=== PATIENT | male | born 1975 | race Caucasian/White ===

== ENCOUNTER 2017-05-01 09:59 | Emergency (ER) | payer OTHER ==
[~2017-05-01] VITALS: Ht 175.3 cm; Wt 73.0 kg
[~2017-05-01 09:59] MED LIST: AMOX500T PO; CIPR0.3S EACH EAR; CORTI10A AU; IBUP-238 PO; LORTA5 PO; Z.0.NO CURRENT MEDS
[2017-05-01 10:02] VITALS: BP 190/96; PULSE 84; RESP 16; TEMP 98.9; O2SAT 98
[2017-05-01] MEDS ORDERED: NORC5TAB PO (10:23)
[2017-05-01] MEDS ORDERED: BACT800T5 PO (10:23)
[2017-05-01] MEDS ORDERED: CORTISPORIN OTIC SUS EACH EAR (10:23)
[2017-05-01] MEDS ORDERED: CIPR-9 PO (10:23)
--- NOTE | 2017-05-01 10:23 | PD ---
HPI Chief Complaint: ENT Complaint Time Seen by Provider: 10:12 Travel History International Travel<30 days: No Contact w/Intl Traveler<30days: No Traveled to known affect area: No History of Present Illness HPI 42-year-old male complains of ear pain. Patient states that the pain started yesterday. Patient states the pain is severe pain sharp pain localized to the left ear. Patient denies any pain radiation. Patient feeling feverish this today. Patient denies any sore throat coughing congestion. Patient denies any nausea vomiting diarrhea. PFSH Past Medical History Diminished Hearing: No Immunizations Current: No Influenza Vaccination: No ?: Not Past Surgical History Appendectomy: Yes Social History Alcohol Use: Yes (2 x wk) Tobacco Use: No Substance Use: No Allergies-Medications (Allergen,Severity, Reaction): Coded Allergies: No Known Allergies (Verified , 05/01/17) Reported Meds & Prescriptions Reported Meds & Active Scripts Active No Active Prescriptions or Reported Medications Review of Systems General / Constitutional: No: Fever Eyes: No: Visual changes HENT: Positive: Earache, No: Headaches Cardiovascular: No: Chest Pain or Discomfort Respiratory: No: Shortness of Breath Gastrointestinal: No: Abdominal Pain Genitourinary: No: Dysuria Musculoskeletal: No: Pain Skin: No Rash Neurologic: No: Weakness Psychiatric: No: Depression Endocrine: No: Polydipsia Hematologic/Lymphatic: No: Easy Bruising Physical Exam Narrative GENERAL: Well-nourished, well-developed patient. SKIN: Focused skin assessment warm/dry. HEAD: Normocephalic. EYES: No scleral icterus. No injection or drainage. Soft tissue swelling tenderness left ear canal and left earlobe. Mild diffuse tenderness over the soft tissue surrounding left ear. Throat: Nonerythematous. NECK: Supple, trachea midline. No JVD or lymphadenopathy. CARDIOVASCULAR: Regular rate and rhythm without murmurs, gallops, or rubs. RESPIRATORY: Breath sounds equal bilaterally. No accessory muscle use. GASTROINTESTINAL: Abdomen soft, non-tender, nondistended. MUSCULOSKELETAL: No cyanosis, or edema. BACK: Nontender without obvious deformity. No CVA tenderness. Data Data Last Documented VS Vital Signs Date Time Temp Pulse Resp B/P Pulse Ox O2 Delivery O2 Flow Rate FiO2 05/01/17 10:02 98.9 84 16 190/96 98 MDM Medical Decision Making Medical Screen Exam Complete: Yes Emergency Medical Condition: Yes Differential Diagnosis Differential diagnosis including otitis externa, otitis media, cellulitis, abscess. Narrative Course 42-year-old male with left hip pain. Diagnosis Primary Impression: Left otitis externa Qualified Code: H60.312 - Acute diffuse otitis externa of left ear Patient Instructions: General Instructions Additional Instructions: Take medications as directed. Follow-up with ENT. Return if worse. Med/Other Pt SpecificInfo: Prescription(s) given Scripts Hydrocodone-Acetaminophen ([place])5-325 mg Tab1 Tab PO Q6H PRN (PAIN) #20 TAB Ref 0 Prov:Salinas Gray MD 05/01/17 [Cortisporin Otic Umm] No Conflict Check4 Drop EACH EAR TID #1 Prov:Salinas Gray MD 05/01/17 Sulfamethoxazole-Trimethoprim (Bactrim DS)800-160 Mg Tab1 Tab PO BID #20 TAB Prov:Salinas Gray MD 05/01/17 Ciprofloxacin (Cipro)500 Mg Dli024 Mg PO BID #20 TAB Prov:Salinas Gray MD 05/01/17 Disposition: 01 DISCHARGE HOME Condition: Stable Salinas Gray MD May 01, 2017 10:23
== END 2017-05-01 10:40 | disposition home or self-care (01) ==
LOC: PHEFT 09:59
DX: H60.312 Diffuse otitis externa, left ear (principal)
CPT/HCPCS: 99284

== ENCOUNTER 2017-12-04 16:58 | Emergency (ER) | payer OTHER ==
[~2017-12-04] VITALS: Ht 172.7 cm; Wt 72.0 kg
[~2017-12-04 16:58] MED LIST changes: -AMOX500T PO; +BACT800T5 PO; +CIPR-9 PO; -CIPR0.3S EACH EAR; -CORTI10A AU; +CORTISPORIN OTIC SUS EACH EAR; -IBUP-238 PO; -LORTA5 PO; +NORC5TAB PO; -Z.0.NO CURRENT MEDS
[2017-12-04 17:58] VITALS: BP 143/71; PULSE 108; RESP 16; TEMP 100.1; O2SAT 97
[2017-12-04] MEDS ORDERED: OSEL75 PO (19:53)
[2017-12-04] MEDS ORDERED: PROMSYP3 PO (19:53)
--- NOTE | 2017-12-04 19:54 | PD ---
HPI Chief Complaint: Cold / Flu Symptoms Time Seen by Provider: 19:34 Travel History International Travel<30 days: No Contact w/Intl Traveler<30days: No Traveled to known affect area: No History of Present Illness HPI His is a 42-year-old male here with body aches, fever, nasal congestion, cough 2 days. Severity is moderate. No aggravating or alleviating factors. No sick contacts or foreign travel. PFSH Past Medical History Medical History: Denies Significant Hx Diminished Hearing: No Immunizations Current: No Tetanus Vaccination: Unknown Influenza Vaccination: No Past Surgical History Appendectomy: Yes Social History Alcohol Use: Yes (2 x wk) Tobacco Use: No Substance Use: No Allergies-Medications (Allergen,Severity, Reaction): Coded Allergies: No Known Allergies (Verified Adverse Reaction, Unknown, 12/04/17) Reported Meds & Prescriptions Reported Meds & Active Scripts Active Promethazine-Dextromethorphan Liq (Dextromethorphan-Promethazine Liq) 6.25-15 Mg /5 Ml Syrp 10 Ml PO Q6HR PRN Tamiflu (Oseltamivir Phosphate) 75 Mg Cap 75 Mg PO BID 5 Days Review of Systems Except as stated in HPI: all other systems reviewed are Neg General / Constitutional: Positive: Fever Eyes: No: Visual changes HENT: Positive: Sore Throat, Congestion Cardiovascular: No: Chest Pain or Discomfort Respiratory: Positive: Cough Gastrointestinal: No: Abdominal Pain Genitourinary: No: Dysuria Physical Exam Narrative GENERAL: Alert well-appearing 42-year-old male SKIN: Warm and dry. No rash HEAD: Normocephalic. EYES: . No injection or drainage. Ear/nose/throat; the TM erythema. Clear nasal discharge. Mild pharyngeal erythema without tonsillar hypertrophy or exudate. Uvula is midline. Airway is patent. NECK: Supple, trachea midline. No images moves CARDIOVASCULAR: Regular rate and rhythm . No murmur appreciated. RESPIRATORY: Breath sounds equal bilaterally. No accessory muscle use. GASTROINTESTINAL: Abdomen soft, non-tender, nondistended. MUSCULOSKELETAL: No cyanosis, or edema. BACK: Nontender without obvious deformity. No CVA tenderness. Data Data Last Documented VS Vital Signs Date Time Temp Pulse Resp B/P (MAP) Pulse Ox O2 Delivery O2 Flow Rate FiO2 12/04/17 17:58 100.1 108 16 143/71 (95) 97 Orders Orders Influenzae A/B Antigen (12/04/17 19:08) Ed Discharge Order (12/04/17 19:54) MDM Medical Decision Making Medical Screen Exam Complete: Yes Emergency Medical Condition: Yes Differential Diagnosis Influenza, pneumonia, URI Narrative Course This is a 42-year-old male here with flulike illness. He is nontoxic appearing. He is well-hydrated. Influenza screening is positive. He'll be treated with Tamiflu Diagnosis Primary Impression: Influenza Referrals: Primary Care Physician Departure Forms: Tests/Procedures, Work Release Enter return to work date: Dec 07, 2017 Additional Instructions: Medications as directed. Stay well hydrated by drinking plenty fluids. Tylenol and ibuprofen for fever and body pain. He developed new or worsening symptoms Scripts Dextromethorphan-Promethazine Liq (Promethazine-Dextromethorphan Liq) 6.25-15 Mg /5 Ml Syrp 10 ML PO Q6HR Y for COUGH, #120 ML Prov: Ana Maria Medina 12/04/17 Oseltamivir (Tamiflu) 75 Mg Cap 75 MG PO BID for Mgmt Viral Infection for 5 Days, #10 CAP 0 Refills Prov: Ana Maria Medina 12/04/17 Disposition: 01 DISCHARGE HOME Condition: Stable Ana Maria Medina Dec 04, 2017 19:54
== END 2017-12-04 20:10 | disposition home or self-care (01) ==
LOC: PHED 16:58 → PHEFT 20:10
DX: J10.1 Influenza due to other identified influenza virus with other respiratory manifestations (principal)
CPT/HCPCS: 87804; 99283